=== PATIENT | female | born 1965 | race Two or more races ===

== ENCOUNTER 2020-06-10 04:23 | Emergency (ER) | payer OTHER ==
[~2020-06-10] VITALS: Ht 167.6 cm; Wt 90.7 kg
[~2020-06-10 04:23] MED LIST: COZAAR100 MG; GLIMEPIRIDE2 MG; JANUVIA100 MG; METFORMIN HCL1000 MG; NORVASC5 MG
[2020-06-10] MEDS ORDERED: XIGDUO XR 10 M1 EAC1 (04:33)
[2020-06-10] MEDS ORDERED: LANTUS SOL100 UNIT/1 (04:34)
[2020-06-10] MEDS ORDERED: DICLOFENAC SODI75 MG PO (04:55)
== END 2020-06-10 05:08 | disposition home or self-care (01) ==
LOC: ER 04:23
DX: M54.5 Low back pain (principal)

== ENCOUNTER 2022-07-03 18:46 | Emergency (ER) | payer OTHER ==
[~2022-07-03] VITALS: Ht 167.6 cm; Wt 89.8 kg
[~2022-07-03 18:46] MED LIST changes: +DICLOFENAC SODI75 MG PO; +LANTUS SOL100 UNIT/1; +XIGDUO XR 10 M1 EAC1
[2022-07-03] MEDS ORDERED: CIPRO500 MG PO (23:34)
[2022-07-03] MEDS ORDERED: PEPCID AC20 MG PO (23:34)
[2022-07-03] MEDS ORDERED: ONDANSETRON ODT8 MG PO (23:34)
== END 2022-07-03 23:55 ==
LOC: ER 18:46
DX: K52.9 Noninfective gastroenteritis and colitis, unspecified (principal); E11.65 Type 2 diabetes mellitus with hyperglycemia; Z79.4 Long term (current) use of insulin; I10 Essential (primary) hypertension; Z88.8 Allergy status to other drugs, medicaments and biological substances

== ENCOUNTER 2022-07-28 10:27 | Outpatient (CLI) | payer OTHER ==
[~2022-07-28 10:27] MED LIST changes: +CIPRO500 MG PO; +ONDANSETRON ODT8 MG PO; +PEPCID AC20 MG PO
== END 2022-07-28 10:30 | disposition home or self-care (01) ==
LOC: NUCLEAR 10:27
PROVIDERS: ATTEND Internal Medicine
DX: I65.29 Occlusion and stenosis of unspecified carotid artery (principal); Z88.8 Allergy status to other drugs, medicaments and biological substances

== ENCOUNTER → 2022-08-06 | Outpatient (CLI) | payer OTHER | END | disposition home or self-care (01) | LOC: NUCLEAR 08:21 | PROVIDERS: ATTEND Psychiatry & Neurology Clinical Neurophysiology | DX: I63.30 Cerebral infarction due to thrombosis of unspecified cerebral artery (principal); Z88.8 Allergy status to other drugs, medicaments and biological substances ==

== ENCOUNTER → 2022-11-12 | Emergency (ER) | payer OTHER ==
[~2022-11-12] VITALS: Ht 172.7 cm; Wt 81.2 kg
[~2022-11-12] MED LIST changes: +KETO10TA2 PO; +NORFLEX100MG PO
== END | disposition home or self-care (01) ==
LOC: ER 06:02
DX: M54.50 Low back pain, unspecified (principal); M25.552 Pain in left hip; M25.551 Pain in right hip; Z88.8 Allergy status to other drugs, medicaments and biological substances

== ENCOUNTER 2023-05-22 08:17 | Outpatient (CLI) | payer OTHER | END 2023-05-22 08:19 | disposition home or self-care (01) | LOC: LAB 08:17 | PROVIDERS: ATTEND Internal Medicine Hematology & Oncology | DX: D50.8 Other iron deficiency anemias (principal); R79.9 Abnormal finding of blood chemistry, unspecified; I10 Essential (primary) hypertension; R74.02 Elevation of levels of lactic acid dehydrogenase [LDH]; K76.89 Other specified diseases of liver; E03.8 Other specified hypothyroidism; D51.0 Vitamin B12 deficiency anemia due to intrinsic factor deficiency; D51.1 Vitamin B12 deficiency anemia due to selective vitamin B12 malabsorption with proteinuria; E06.3 Autoimmune thyroiditis; D68.59 Other primary thrombophilia; D68.52 Prothrombin gene mutation; E11.9 Type 2 diabetes mellitus without complications; I63.542 Cerebral infarction due to unspecified occlusion or stenosis of left cerebellar artery; E78.2 Mixed hyperlipidemia; G46.4 Cerebellar stroke syndrome ==